=== PATIENT | male | born 1985 | race Caucasian/White ===

== ENCOUNTER 2018-09-06 07:55 | Emergency (ER) | payer OTHER ==
[~2018-09-06] VITALS: Ht 190.5 cm; Wt 117.0 kg
--- NOTE | 2018-09-06 08:21 | NUR ---
PT PRESENTS TO ED AFTER SUSTAINING NEEDLESTICK INJURY ON A URINE COLLECTION CONTAINER. THE SOURCE IS HIV ANTIGEN POSITIVE PER [employer].
[2018-09-06 08:26] VITALS: BP 147/90
--- NOTE | 2018-09-06 09:10 | NUR ---
paged dr justin marroquin for dr garber.
--- NOTE | 2018-09-06 09:20 | NUR ---
dr marroquin returned call to dr garber.
--- NOTE | 2018-09-06 09:39 | NUR ---
RECEIVED REPORT FROM MARISA LAWSON. JAM NUNEZ PAGED.
== END 2018-09-06 10:09 | disposition home or self-care (01) ==
LOC: ED 10:03
DX: S69.92XA Unspecified injury of left wrist, hand and finger(s), initial encounter (principal); W46.1XXA Contact with contaminated hypodermic needle, initial encounter; Y93.89 Activity, other specified; Y92.89 Other specified places as the place of occurrence of the external cause; Y99.8 Other external cause status
CPT/HCPCS: 99281

== ENCOUNTER → 2018-12-18 | Outpatient (CLI) | payer OTHER ==
[2018-12-18 09:09] LABS: MEAN CORPUSCULAR HEMOGLOBIN 27.3 pg (27.5-34.5); MEAN CORPUSCULAR HGB CONC 33.3 g/dL (33.2-36.2); MEAN CORPUSCULAR VOLUME 82.1 fL (81-97); MEAN PLATELET VOLUME 7.5 fL (7.4-10.4); PLATELET COUNT 259 x10^3/uL (130-400); RED BLOOD COUNT 5.58 x10^6/uL (4.38-5.82); RED CELL DISTRIBUTION WIDTH 15.3 % (9.4-14.8)
[2018-12-18 09:20] LABS: CALCIUM 9.1 mg/dL (8.5-10.1)
[2018-12-18 09:32] LABS: ALANINE AMINOTRANSFERASE 51 U/L (12-78); ALKALINE PHOSPHATASE 57 U/L (45-117); ANION GAP 5 mmol/L (5-15); BILIRUBIN,TOTAL 0.6 mg/dL (0.2-1.0); CHLORIDE 109 mmol/L (98-107); CHOLESTEROL, TOTAL 130 mg/dL (140-239); HDL CHOL % 34 % (26-37); HDL CHOLESTEROL (DIRECT) 44 mg/dL (40-60); LDL CHOLESTEROL,CALCULATED 72 mg/dL (54-169); LDL/HDL RATIO 1.6 (0.5-3.0); TOTAL PROTEIN 7.7 g/dL (6.4-8.2); TRIGLYCERIDES 71 mg/dL (50-200); VLDL CHOLESTEROL 14 mg/dL (0-25)
[2018-12-18 10:25] LABS: HEMOGLOBIN A1C 5.8 % (4.2-6.3)
== END | disposition home or self-care (01) ==
LOC: LAB 08:53
PROVIDERS: ATTEND Family Medicine
DX: Z13.220 Encounter for screening for lipoid disorders (principal); Z13.29 Encounter for screening for other suspected endocrine disorder; Z13.89 Encounter for screening for other disorder; E55.9 Vitamin D deficiency, unspecified
CPT/HCPCS: 36415; 80053; 80061; 82306; 83036; 84402; 84403; 84443; 85027